=== PATIENT | female | born 1995 | race Caucasian/White ===

== ENCOUNTER → 2020-09-08 | Outpatient (CLI) | payer OTHER ==
[2020-09-08 16:27] LABS: HCT 38.2 % (34.0-46.0); HGB 12.7 gm/dL (11.4-16.0); MCH 31.8 pg (25.0-35.0); MCHC 33.2 g/dL (31.0-37.0); MCV 95.9 fL (80.0-100.0); Mean Platelet Volume 6.7; Platelet Count 263 k/uL (150-450); RBC 3.98 m/uL (3.80-5.40); RDW 13.2 % (11.5-15.5); WBC 7.2 k/uL (3.8-10.6)
[2020-09-08 16:36] LABS: African American GFR (CKD) >90 (>60 ml/min/1.73 sqM); Glucose 75 mg/dL (74-99); Non-African American GFR(CKD) >90 (>60 ml/min/1.73 sqM)
--- NOTE | 2020-09-08 16:59 | US ---
EXAMINATION TYPE: Transabdominal DATE OF EXAM: 09/08/2020 3:53 PM COMPARISON: NONE CLINICAL HISTORY: Z36 confirm dates. EXAM PERFORMED: Transabdominal (TA) EXAM MEASUREMENTS: GESTATIONAL AGE / DATING Physician Established: Not yet established Dates by LMP: 06/20/2020 (11 weeks/3 days) EDC: 03/27/2021 Dates by First Scan: No previous this is first scan Dates by Current Scan for (11 weeks/3 days) EDC: 03/27/2021 MATERNAL ANATOMY Uterus: 8.3 x 8.4 x 8.0 cm Right Ovary: 2.9 x 2.6 x 1.9 cm Left Ovary: 3.5 x 1.8 x 2.1 cm Post CDS / Adnexa: wnl Presence of free fluid: none GESTATION / SURVEY CRL: 4.5 cm (11 weeks/3 days) Yolk Sac (normal less than 6mm): not seen Heart Rate: 156 bpm Rhythm: Normal IUP: Viable IUP Date of LMP: 06/20/2020 Beta HcG (if available): not available Viable IUP that correlates with LMP. IMPRESSION: 1. Single intrauterine with a crown-rump length of 4.5 cm consistent with a gestational age of 11 weeks and 3 days. heart rate is 156 bpm. Yolk sac is not visualized.
[2020-09-09 01:57] LABS: HIV 2 AB Non-Reactive (Non-Reactive); HIV AB P24 Non-Reactive (Non-Reactive); HIV P24 AG Non-Reactive (Non-Reactive)
[2020-09-09 15:31] LABS: Hepatitis B Surface Antigen Non-Reactive (Non-Reactive)
== END | disposition home or self-care (01) ==
LOC: RADUSWWP 15:32
PROVIDERS: ATTEND Obstetrics & Gynecology
DX: Z36.89 Encounter for other specified antenatal screening (principal)
CPT/HCPCS: 36415; 76801; 82565; 82947; 85027; 86762; 86780; 86850; 86900; 86901; 87340; 87390

== ENCOUNTER → 2020-12-22 | Outpatient (CLI) | payer OTHER ==
[2020-12-22 19:42] LABS: HCT 34.4 % (37.2-46.3); HGB 11.5 g/dL (12.0-15.0); MCHC 33.4 g/dL (32.0-37.0); MCV 98.9 fL (80.0-97.0); Mean Platelet Volume 10.1 fL (9.5-12.2); Platelet Count 262 X 10*3/uL (140-440); RBC 3.48 X 10*6/uL (4.10-5.20); WBC 8.02 X 10*3/uL (4.50-10.00)
== END | disposition home or self-care (01) ==
LOC: LABWHC1 13:27
PROVIDERS: ATTEND Obstetrics & Gynecology
DX: Z34.82 Encounter for supervision of other normal pregnancy, second trimester (principal); Z3A.00 Weeks of gestation of pregnancy not specified
CPT/HCPCS: 36415; 82950; 85027

== ENCOUNTER 2021-03-21 06:18 | Inpatient (IN) | payer OTHER ==
[2021-03-21] MEDS ORDERED: TERBUTALINE 1 MG/ML VIAL SQ PRN (06:46)
[2021-03-21] MEDS ORDERED: METHYLERGONOVINE 0.2 MG/ML 1 ML AMP IM PRN (06:46)
[2021-03-21] MEDS ORDERED: CARBOPROST TROMETHAMINE 250 MCG/ML 1 ML AMP IM PRN (06:46)
[2021-03-21] MEDS ORDERED: OXYTOCIN 10 UNIT/ML 1 ML VIAL IM PRN (06:46)
[2021-03-21] MEDS ORDERED: LIDOCAINE 0.5% (PF) 5 MG/ML (50 ML SDV) SQ PRN (06:46)
[2021-03-21] MEDS ORDERED: LACTATED RINGERS 1,000 ML IV SCH ×2 (07:00)
[2021-03-21] MEDS ORDERED: OXYTOCIN 30 UNITS/500 ML NS 30 UNIT in SALINE 1 500ML.BAG IV SCH (07:00)
[2021-03-21 07:09] LABS: Basophils % (A) 0 %; Eosinophils % (A) 0 %; HCT 39.9 % (34.0-46.0); Lymphocytes # (A) 1.5 k/uL (1.0-4.8); Lymphocytes % (A) 12 %; MCH 32.5 pg (25.0-35.0); MCHC 35.1 g/dL (31.0-37.0); MCV 92.6 fL (80.0-100.0); Mean Platelet Volume 7.6; Monocytes # (A) 0.5 k/uL (0-1.0); Monocytes % (A) 4 %; Neutrophils # (A) 10.7 k/uL (1.3-7.7); Neutrophils % (A) 83 %; Platelet Count 265 k/uL (150-450); RBC 4.31 m/uL (3.80-5.40); RDW 13.4 % (11.5-15.5); WBC 12.9 k/uL (3.8-10.6)
--- NOTE | 2021-03-21 07:35 | P.HPOB ---
History of Present Illness H&P Date: 03/21/21 Chief Complaint: labor, iugr 25 year old presents at 39 weeks 1 day in labor. Her cervix is 6-7/90/-1. She is garry every few minutes. heart tones 140 with moderate variability and reactive. Review of Systems All systems: negative Constitutional: Denies chills, Denies fever Eyes: denies blurred vision, denies pain Ears, nose, mouth and throat: Denies headache, Denies sore throat Cardiovascular: Denies chest pain, Denies shortness of breath Respiratory: Denies cough Gastrointestinal: Denies abdominal pain, Denies diarrhea, Denies nausea, Denies vomiting Genitourinary: Denies dysuria, Denies hematuria Musculoskeletal: Denies myalgias Integumentary: Denies pruritus, Denies rash Neurological: Denies numbness, Denies weakness Psychiatric: Denies anxiety, Denies depression Endocrine: Denies fatigue, Denies weight change Past Medical History Additional Past Medical History / Comment(s): A+, abs neg, Rub Imm, RPR Nr, hep B neg, GBS neg. History of Any Multi-Drug Resistant Organisms: None Reported Smoking Status: Never smoker Medications and Allergies Home Medications Medication Instructions Recorded Confirmed Type Pnv No.95/Ferrous Fum/Folic AC 1 tab PO DAILY 03/21/21 03/21/21 History [ Multivitamin Tablet] Allergies Allergy/AdvReac Type Severity Reaction Status Date / Time No Known Allergies Allergy Verified 03/21/21 06:31 Exam Osteopathic Statement: *. No significant issues noted on an osteopathic structural exam other than those noted in the History and Physical/Consult. Vital Signs Temp Pulse Resp BP Pulse Ox 03/21/21 06:44 97.2 F L 85 16 133/95 97 Intake and Output 03/20/21 03/21/21 03/21/21 22:59 06:59 14:59 Other: Weight 58.967 kg HEart: RRR Lungs: CTAB Abdomen: soft, nontender Extremeties: neg sergey's Results Result Diagrams: 03/21/21 06:56 Abnormal Lab Results - Last 24 Hours (Table) 03/21/21 Range/Units 06:56 WBC 12.9 H (3.8-10.6) k/uL Neutrophils # 10.7 H (1.3-7.7) k/uL Assessment and Plan (1) Normal labor Current Visit: Yes Status: Acute Code(s): O80 - ENCOUNTER FOR FULL-TERM UNCOMPLICATED DELIVERY; Z37.9 - OUTCOME OF DELIVERY, UNSPECIFIED SNOMED Code(s): 51306407 (2) IUGR (intrauterine growth restriction) Current Visit: Yes Status: Acute Code(s): LNP8324 - SNOMED Code(s): 83446466 Plan: 1. admit to [facility] 2. expectant management 3. anticipate normal vaginal delivery
[2021-03-21] MEDS ORDERED: diphenhydrAMINE 25 MG CAP PO PRN (11:01)
[2021-03-21] MEDS ORDERED: ZOLPIDEM 5 MG TAB PO PRN (11:01)
[2021-03-21] MEDS ORDERED: LANOLIN CREAM 5 GM TUBE TOPICAL PRN (11:01)
[2021-03-21] MEDS ORDERED: ACETAMINOPHEN TAB 325 MG TAB PO PRN (11:01)
[2021-03-21] MEDS ORDERED: SIMETHICONE 80 MG CHEWABLE PO PRN (11:01)
[2021-03-21] MEDS ORDERED: IBUPROFEN 600 MG TAB PO PRN (11:01)
[2021-03-21] MEDS ORDERED: diphenhydrAMINE 50 MG CAP PO PRN (11:01)
[2021-03-21] MEDS ORDERED: BENZOCAINE/MENTHOL SPRAY 1 GM/SPRAY AEROSOL TOPICAL PRN (11:01)
[2021-03-21] MEDS ORDERED: HYDROCORTISONE 2.5% RECTAL CREAM 30 GM TUBE RECTAL PRN (11:01)
[2021-03-21] MEDS: SENNOSIDES-DOCUSATE SODIUM 1 EACH TAB PO SCH (19:41)
[2021-03-21 19:44] LABS: Amphetamine Screen,Urine Not Detected (NotDetected); Barbiturate Screen,Urine Not Detected (NotDetected); Benzodiazepines Screen,Urine Not Detected (NotDetected); Cocaine Screen,Urine Not Detected (NotDetected); Methadone Screen, Urine Not Detected (NotDetected); Opiate Screen,Urine Not Detected (NotDetected); Oxycodone Screen, Urine Not Detected (NotDetected); Phencyclidine Screen,Urine Not Detected (NotDetected); Tricyclic Antidepressant,Urine Not Detected (NotDetected); Urn Cannabinoid Scrn Detected (NotDetected)
[2021-03-22 06:46] LABS: Basophils % (A) 0 %; Eosinophils # (A) 0.1 k/uL (0-0.7); Eosinophils % (A) 1 %; HGB 11.9 gm/dL (11.4-16.0); Lymphocytes # (A) 2.2 k/uL (1.0-4.8); Lymphocytes % (A) 19 %; MCH 33.2 pg (25.0-35.0); MCHC 34.9 g/dL (31.0-37.0); MCV 94.9 fL (80.0-100.0); Mean Platelet Volume 7.8; Monocytes # (A) 0.6 k/uL (0-1.0); Monocytes % (A) 5 %; Neutrophils # (A) 8.4 k/uL (1.3-7.7); Neutrophils % (A) 74 %; Platelet Count 186 k/uL (150-450); RBC 3.58 m/uL (3.80-5.40); RDW 13.5 % (11.5-15.5); WBC 11.4 k/uL (3.8-10.6)
--- NOTE | 2021-03-22 07:12 | P.PROBDLV ---
Vaginal Delivery Note - . Vaginal Delivery Note: 25 year old presents at 39 weeks 1 day in labor. Her cervix is 6-7/90/-1. She is garry every few minutes. heart tones 140 with moderate variability and reactive. The IV performed at 7:17 AM and clear fluid noted. Her cervix was completely dilated at 9:14 AM. She pushed, and delivered a viable female infant over intact perineum at 10:46 AM. Head delivered OA, anterior shoulder delivered gentle downward guidance. The posterior shoulder and rest of body. Nose and mouth bulb suctioned, cord clamped and cut, infant placed on mother's abdomen. Apgars 5 at 1 minute and 7 at 5 minutes and 9 at 10 minutes, weight 5 lbs. 15 oz. Placenta delivered spontaneously, intact with three-vessel cord at 10:48 AM. Vagina, cervix, perineum inspected. No lacerations noted. Estimated blood loss 150 mL. Mother and baby in stable condition.
--- NOTE | 2021-03-22 07:14 | P.DS ---
Providers Date of admission: 03/21/21 06:43 Expected date of discharge: 03/22/21 Attending physician: Yvonne Mijares Primary care physician: Stated None - Discharge Diagnosis(es) (1) Normal labor Current Visit: Yes Status: Resolved (2) IUGR (intrauterine growth restriction) Current Visit: Yes Status: Resolved (3) Normal vaginal delivery Current Visit: Yes Status: Acute Hospital Course: Patient presented in active labor. She underwent a normal vaginal delivery. course was uncomplicated. She denies nausea, vomiting, chest pain, shortness of breath or any calf pain. Patient will be discharged home p ostpartum day #1 in stable condition to follow-up with me in 6 weeks. Plan - Discharge Summary New Discharge Prescriptions: New RX: Ibuprofen [Motrin] 600 mg PO Q6HR PRN #30 tab PRN Reason: Mild Pain (Scale 1 To 3) No Action Pnv No.95/Ferrous Fum/Folic AC [ Multivitamin Tablet] 1 tab PO DAILY Discharge Medication List Pnv No.95/Ferrous Fum/Folic AC [ Multivitamin Tablet] 1 tab PO DAILY 03/21/21 [History] RX: Ibuprofen [Motrin] 600 mg PO Q6HR PRN #30 tab 03/22/21 [Rx] Follow up Appointment(s)/Referral(s): Yvonne Mijares DO [Doctor of Osteopathic Medicine] - 05/04/21 3:45 pm Discharge Disposition: HOME SELF-CARE
[2021-03-22] MEDS: SENNOSIDES-DOCUSATE SODIUM 1 EACH TAB PO SCH ×2 (08:33→20:36)
[2021-03-22 21:51] VITALS: RESP 16
[2021-03-23] MEDS: SENNOSIDES-DOCUSATE SODIUM 1 EACH TAB PO SCH (09:05)
[2021-03-23 11:19] VITALS: BP 106/71; PULSE 71; TEMP 98
== END 2021-03-23 15:53 | disposition home or self-care (01) | DRG 807 ==
LOC: FBPOP 06:18 → 4FBP 06:43
PROVIDERS: ADMIT Obstetrics & Gynecology; ATTEND Obstetrics & Gynecology
PROC: 10E0XZZ Delivery of Products of Conception, External Approach (ICD-10-PCS; principal; 2021-03-21)
DX: O36.5930 Maternal care for other known or suspected poor fetal growth, third trimester, not applicable or unspecified (principal); Z37.0 Single live birth; Z3A.39 39 weeks gestation of pregnancy
CPT/HCPCS: 59025; 80306; 84112; 85025; 86850; 86900; 86901; 88307; 99213

== ENCOUNTER → 2021-10-07 | Outpatient (CLI) | payer OTHER ==
--- NOTE | 2021-10-07 12:49 | US ---
EXAMINATION TYPE: Transabdominal DATE OF EXAM: 10/07/2021 12:34 PM COMPARISON: NONE CLINICAL HISTORY: Z36.89 SCREENING. early OB, EXAM PERFORMED: OBTA EXAM MEASUREMENTS: GESTATIONAL AGE / DATING Physician Established: Not yet established Dates by LMP: LMP unknown Dates by First Scan: No previous this is first scan Dates by Current Scan for: (11 weeks/4 days) EDC: 04/24/2022 MATERNAL ANATOMY Uterus: 9.9 x 9.8 x 8.2cm Right Ovary: 2.0 x 1.4 x 1.1cm Left Ovary: 3.4 x 2.7 x 1.8cm Post CDS / Adnexa: wnl Presence of free fluid: no Presence of corpus luteal cyst: yes - left ovary = 2.8cm Presence of subchorionic bleed: no GESTATION / SURVEY CRL: 4.8cm (11 weeks/4 days) MSD: wnl Yolk Sac (normal less than 6mm): not seen Heart Rate: 146 bpm Rhythm: Normal IUP: Viable IUP Age Appropriate Anatomy Cord Insertion: Visualized Limbs: Visualized Calvarium: Visualized Date of LMP: unknown IMPRESSION: Normal single viable uterine .
== END | disposition home or self-care (01) ==
LOC: RADUSWWP 12:08
PROVIDERS: ATTEND Obstetrics & Gynecology
DX: Z36.89 Encounter for other specified antenatal screening (principal); Z3A.11 11 weeks gestation of pregnancy
CPT/HCPCS: 76801

== ENCOUNTER → 2022-01-18 | Outpatient (CLI) | payer OTHER ==
[2022-01-18 22:59] LABS: HCT 33.1 % (37.2-46.3); HGB 11.3 g/dL (12.0-15.0); MCH 32.7 pg (27.0-32.0); MCHC 34.1 g/dL (32.0-37.0); MCV 95.7 fL (80.0-97.0); NRBC Per 100 WBC 0 /100 WBCS (0.0-0.0); Platelet Count 245 X 10*3/uL (140-440); RBC 3.46 X 10*6/uL (4.10-5.20); RDW 13.3 % (11.5-14.5); WBC 7.08 X 10*3/uL (4.50-10.00)
== END | disposition home or self-care (01) ==
LOC: LABWHC1 14:23
PROVIDERS: ATTEND Obstetrics & Gynecology
DX: Z34.82 Encounter for supervision of other normal pregnancy, second trimester (principal); Z3A.00 Weeks of gestation of pregnancy not specified
CPT/HCPCS: 36415; 82950; 85027

== ENCOUNTER 2022-04-12 08:53 | Inpatient (IN) | payer OTHER ==
[2022-04-12] MEDS ORDERED: METHYLERGONOVINE 0.2 MG/ML 1 ML AMP IM PRN (09:10)
[2022-04-12] MEDS ORDERED: CARBOPROST TROMETHAMINE 250 MCG/ML 1 ML AMP IM PRN (09:10)
[2022-04-12] MEDS ORDERED: miSOPROStoL 200 MCG TAB PO PRN (09:10)
[2022-04-12] MEDS ORDERED: LIDOCAINE 0.5% (PF) 5 MG/ML (50 ML SDV) SQ PRN (09:10)
[2022-04-12] MEDS ORDERED: TERBUTALINE 1 MG/ML VIAL SQ PRN (09:10)
[2022-04-12] MEDS ORDERED: OXYTOCIN 10 UNIT/ML 1 ML VIAL IM PRN (09:10)
[2022-04-12] MEDS ORDERED: OXYTOCIN 30 UNITS/500 ML NS 30 UNIT in SALINE 1 500ML.BAG IV SCH ×2 (09:15→12:45)
[2022-04-12] MEDS ORDERED: LACTATED RINGERS 1,000 ML IV SCH (09:15)
[2022-04-12 09:50] LABS: Basophils % (A) 0 %; Eosinophils % (A) 0 %; HCT 35.7 % (34.0-46.0); HGB 12.7 gm/dL (11.4-16.0); Lymphocytes % (A) 10 %; MCH 33.6 pg (25.0-35.0); MCHC 35.4 g/dL (31.0-37.0); MCV 94.8 fL (80.0-100.0); Mean Platelet Volume 7.6; Monocytes # (A) 0.3 k/uL (0-1.0); Monocytes % (A) 3 %; Neutrophils # (A) 8.3 k/uL (1.3-7.7); Neutrophils % (A) 86 %; Platelet Count 260 k/uL (150-450); RBC 3.77 m/uL (3.80-5.40); RDW 13.5 % (11.5-15.5); WBC 9.7 k/uL (3.8-10.6)
--- NOTE | 2022-04-12 11:58 | P.HPOB ---
History of Present Illness H&P Date: 04/12/22 Chief Complaint: Contractions This patient is a pleasant 26-year-old 3 para 1 female estimated date of confinement 04/21/2022 estimated gestational age 38-5/7 weeks who presents to labor and delivery with complaints of contractions story about 2 or 3 this morning. Patient is 6-7 cm dilated on admission felt to be in active labor. care is per Dr. Mijares appears to be uncomplicated. She has been having growth ultrasounds for small for gestational age but no evidence of IUGR. Review of Systems Genitourinary: Reports Menstruation: Reports amenorrhea Past Medical History Past Medical History: No Reported History Additional Past Medical History / Comment(s): A+, abs neg, Rub Imm, RPR Nr, hep B neg, GBS neg. History of Any Multi-Drug Resistant Organisms: None Reported Past Surgical History: No Surgical Hx Reported Past Anesthesia/Blood Transfusion Reactions: No Reported Reaction Past Psychological History: No Psychological Hx Reported Smoking Status: Never smoker Past Alcohol Use History: None Reported Past Drug Use History: None Reported, Marijuana Additional Drug Use History / Comment(s): uses " a few times a week" - Past Family History Mother History Unknown: Yes Family Medical History: No Reported History Medications and Allergies Home Medications Medication Instructions Recorded Confirmed Type Pnv No.95/Ferrous Fum/Folic AC 1 tab PO DAILY 03/21/21 03/21/21 History [ Multivitamin Tablet] Ibuprofen [Motrin] 600 mg PO Q6HR PRN #30 tab 03/22/21 Rx Allergies Allergy/AdvReac Type Severity Reaction Status Date / Time No Known Allergies Allergy Verified 04/12/22 09:09 Exam Vital Signs Temp Pulse Resp Pulse Ox 04/12/22 10:00 98.0 F 82 16 100 Intake and Output 04/11/22 04/12/22 04/12/22 22:59 06:59 14:59 Other: Weight 55.792 kg - OBG Physical Exam Vulva: both: normal Vagina: normal moisture, no discharge Cervix: no lesion (Cervix is complete with a bulging bag), no discharge Uterus: enlarged Results blood work shows she is A positive, rubella immune, RPR nonreactive, hepatitis B is negative, HIV is nonreactive, group B strep was negative, most recent ultrasound estimated weight of 5 lbs. 11 oz. Result Diagrams: 04/12/22 09:30 Abnormal Lab Results - Last 24 Hours (Table) 04/12/22 Range/Units 09:30 RBC 3.77 L (3.80-5.40) m/uL Neutrophils # 8.3 H (1.3-7.7) k/uL Assessment and Plan Assessment: This is a pleasant 26-year-old 3 para 1 female 38-5/7 weeks gestation admitted to labor and delivery with complaints of contractions found to be in active labor. Plan at this time is anticipate vaginal delivery (1) 38 weeks gestation of Current Visit: Yes Status: Acute Code(s): Z3A.38 - 38 WEEKS GESTATION OF SNOMED Code(s): 48977041 (2) Normal labor Current Visit: No Status: Resolved Code(s): O80 - ENCOUNTER FOR FULL-TERM UNCOMPLICATED DELIVERY; Z37.9 - OUTCOME OF DELIVERY, UNSPECIFIED SNOMED Code(s): 20743734 (3) SGA (small for gestational age), , affecting care of mother, antepartum Current Visit: Yes Status: Acute Code(s): O36.5990 - MATERN CARE FOR OTH OR SUSP POOR FETL GRTH, UNSP TRI, UNSP SNOMED Code(s): 026117909
[2022-04-12] MEDS ORDERED: ZOLPIDEM 5 MG TAB PO PRN (12:38)
[2022-04-12] MEDS ORDERED: ACETAMINOPHEN TAB 325 MG TAB PO PRN (12:38)
[2022-04-12] MEDS ORDERED: diphenhydrAMINE 50 MG/ML 1 ML VIAL IVP PRN (12:38)
[2022-04-12] MEDS ORDERED: diphenhydrAMINE 25 MG CAP PO PRN (12:38)
[2022-04-12] MEDS ORDERED: IBUPROFEN 600 MG TAB PO PRN (12:38)
[2022-04-12] MEDS ORDERED: HYDROCORTISONE 2.5% RECTAL CREAM 30 GM TUBE RECTAL PRN (12:38)
[2022-04-12] MEDS ORDERED: LANOLIN CREAM 5 GM TUBE TOPICAL PRN (12:38)
[2022-04-12] MEDS ORDERED: BENZOCAINE/MENTHOL SPRAY 1 GM/SPRAY AEROSOL TOPICAL PRN (12:38)
[2022-04-12] MEDS ORDERED: bisacodyL 10 MG SUPP RECTAL PRN (12:38)
[2022-04-12] MEDS ORDERED: SIMETHICONE 80 MG CHEWABLE PO PRN (12:38)
[2022-04-12 14:16] VITALS: RESP 16
[2022-04-12] MEDS: SENNOSIDES-DOCUSATE SODIUM 1 EACH TAB PO SCH (19:53)
--- NOTE | 2022-04-13 07:54 | P.PROBDLV ---
Vaginal Delivery Note - . Vaginal Delivery Note: Please note this delivery summary was dictated on 04/12/2022 but apparently did not show up in the [employer] system. Normal spontaneous vaginal delivery of viable female Apgars 8,9 at 1217 hrs. Please see dictated H&P on the is patients admission. In brief summary, this is a pleasant 26 yr female estimated gestational age 38 5/7 who presented to L&D with complaints of contraction since earlier in the morning. On admission the patient is 6 cm dilated. She does not request anything for pain control. She progresses quickly and becomes complete. At that time AROM is performed for clear fluid. She then pushes for approximately 15 minutes and delivers the head over the intact perineum with good control. Infants head is OA. Bulb suction is then done. The anterior shoulder and the rest of this infants body is then spontaneously delivered. This is a vigorous, viable female infant Apgars 8,9. Infant appears grossly normal. Due to a history of jaundice with her first baby, the cord is immediately clamped and cut and the is laid on the mothers abdomen. The placenta is then spontaneously delivered intact. Inspection of the perineum demonstrates a 1st degree laceration which is easily repaired with 3-0 vicryl. All counts are correct x 3. There are no complications. and mother are stable in the birthing suite.
[2022-04-13 08:01] LABS: Basophils % (A) 0 %; Eosinophils # (A) 0.1 k/uL (0-0.7); Eosinophils % (A) 1 %; HCT 33.3 % (34.0-46.0); HGB 11.4 gm/dL (11.4-16.0); Lymphocytes # (A) 2.2 k/uL (1.0-4.8); Lymphocytes % (A) 25 %; MCH 32.4 pg (25.0-35.0); MCHC 34.1 g/dL (31.0-37.0); Monocytes # (A) 0.4 k/uL (0-1.0); Monocytes % (A) 5 %; Neutrophils # (A) 5.7 k/uL (1.3-7.7); Neutrophils % (A) 67 %; Platelet Count 232 k/uL (150-450); RBC 3.51 m/uL (3.80-5.40); RDW 13.6 % (11.5-15.5); WBC 8.5 k/uL (3.8-10.6)
--- NOTE | 2022-04-13 08:07 | P.DS ---
Providers Date of admission: 04/12/22 09:05 Expected date of discharge: 04/13/22 Attending physician: Yvonne Mijares Primary care physician: Stated None - Discharge Diagnosis(es) (1) Normal vaginal delivery Current Visit: No Status: Acute Hospital Course: Patient presented in labor. Underwent a normal vaginal delivery. course was uncomplicated. She denies nausea, vomiting, chest pain, shortness of breath or calf pain. Patient will be discharged home day #1 in stable condition to follow-up with me in 6 weeks. Plan - Discharge Summary New Discharge Prescriptions: New Ibuprofen [Motrin] 600 mg PO Q6HR PRN #30 tab PRN Reason: Mild Pain Or Fever >= 100.5 No Action Ibuprofen [Motrin] 600 mg PO Q6HR PRN #30 tab PRN Reason: Mild Pain (Scale 1 To 3) Pnv No.95/Ferrous Fum/Folic AC [ Multivitamin Tablet] 1 tab PO DAILY Discharge Medication List Pnv No.95/Ferrous Fum/Folic AC [ Multivitamin Tablet] 1 tab PO DAILY 03/21/21 [History] Ibuprofen [Motrin] 600 mg PO Q6HR PRN #30 tab 03/22/21 [Rx] Ibuprofen [Motrin] 600 mg PO Q6HR PRN #30 tab 04/13/22 [Rx] Follow up Appointment(s)/Referral(s): Yvonne Mijares DO [Doctor of Osteopathic Medicine] - 6 Weeks Discharge Disposition: HOME SELF-CARE
[2022-04-13] MEDS: SENNOSIDES-DOCUSATE SODIUM 1 EACH TAB PO SCH ×2 (08:30→20:15)
[2022-04-14] MEDS: SENNOSIDES-DOCUSATE SODIUM 1 EACH TAB PO SCH (11:08)
[2022-04-14 12:44] VITALS: BP 105/71; PULSE 73; TEMP 97.6
== END 2022-04-14 13:45 | disposition home or self-care (01) | DRG 807 ==
LOC: FBPOP 08:53 → 4FBP 09:05
PROVIDERS: ADMIT Obstetrics & Gynecology; ATTEND Obstetrics & Gynecology
PROC: 10E0XZZ Delivery of Products of Conception, External Approach (ICD-10-PCS; principal; 2022-04-13)
PROC: 0HQ9XZZ Repair Perineum Skin, External Approach (ICD-10-PCS; principal; 2022-04-13)
DX: O36.5930 Maternal care for other known or suspected poor fetal growth, third trimester, not applicable or unspecified (principal); Z37.0 Single live birth; O70.0 First degree perineal laceration during delivery; Z28.310 Unvaccinated for COVID-19; Z3A.38 38 weeks gestation of pregnancy; Z79.899 Other long term (current) drug therapy
CPT/HCPCS: 59025; 85025; 86850; 86900; 86901; 99213